=== PATIENT | male | born 1950 | race Caucasian/White ===

== ENCOUNTER 2016-11-27 08:36 | Observation (INO) | payer MEDICARE, OTHER ==
[2016-11-22 13:54] VITALS: Ht 162.6 cm; Wt 84.8 kg
[2016-11-22 13:59] VITALS: BP_SYST 122; RESP 12; TEMP 98.5
[~2016-11-27] VITALS: Ht 162.6 cm; Wt 84.8 kg
[2016-11-27] VITALS (59 sets, daily range): BP systolic 90–125; RESP 10–23; TEMP 97.8–98.4
[2016-11-27] MEDS ORDERED: CEFAZOLIN 2,000 MG in SODIUM CHLORIDE 0.9% 100 ML IV ONE (08:40)
[2016-11-27] MEDS ORDERED: LIDOCAINE 1% BUFFERED 1 ML SYR INTRADERM PRN (08:50)
[2016-11-27] MEDS ORDERED: MIDAZOLAM 2 MG/2 ML INJ IV ONE (08:50)
[2016-11-27] MEDS ORDERED: GLYCOPYRROLATE 0.2 MG/ML VIAL IV ONE (08:50)
[2016-11-27] MEDS ORDERED: LACT RINGERS 1,000 ML IV SCH (08:50)
[2016-11-27] MEDS ORDERED: SALINE FLUSH 10 ML FLUSH PRN ×2 (10:15→12:40)
[2016-11-27] MEDS ORDERED: MORPHINE 2 MG/ML SYR IV PRN ×3 (10:15→14:15)
[2016-11-27] MEDS ORDERED: ONDANSETRON 4 MG VIAL IV PRN ×3 (10:15→12:40)
[2016-11-27] MEDS ORDERED: OXYCODONE 5 MG TAB PO PRN ×2 (10:15→10:25)
[2016-11-27] MEDS ORDERED: MEPERIDINE 25 MG/ML IV PRN (10:25)
[2016-11-27] MEDS ORDERED: DILAUDID 1 MG/ML AMP IV PRN (10:25)
[2016-11-27] MEDS ORDERED: MORPHINE 4 MG/ML SYR IV PRN (10:25)
[2016-11-27] MEDS ORDERED: NITROGLYCERIN SL 0.4 MG TAB SL ONE ×4 (10:49→11:30)
[2016-11-27] MEDS ORDERED: ACETAMINOPHEN 325 MG TAB PO PRN (12:40)
[2016-11-27] MEDS ORDERED: ASPIRIN 81 MG CHEW TAB PO STA (12:40)
[2016-11-27] MEDS ORDERED: TEMAZEPAM 7.5 MG CAP PO PRN (12:40)
[2016-11-27] MEDS ORDERED: LORAZEPAM 0.5 MG TAB PO PRN (12:40)
[2016-11-27] MEDS ORDERED: TRAMADOL 50 MG TAB PO PRN ×2 (12:40→13:00)
[2016-11-27] MEDS ORDERED: NITROGLYCERIN SL 0.4 MG TAB SL PRN (12:40)
[2016-11-27] MEDS ORDERED: NITROGLYCERIN 2% OINT 1 INCH PKT TOPICAL SCH (12:40)
[2016-11-27] MEDS: MORPHINE 2 MG/ML SYR IV PRN ×4 (13:35→23:33)
[2016-11-27] MEDS ORDERED: LIDOCAINE 2% JELLY 30 ML TOPICAL ONE (14:11)
[2016-11-27] MEDS ORDERED: DILAUDID 1 MG/ML AMP IV ONE (14:11)
[2016-11-27] MEDS ORDERED: PROPOFOL 50ML PER ML IV ONE (14:11)
[2016-11-27] MEDS ORDERED: LIDOCAINE 2% SYR 5 ML IV ONE (14:11)
[2016-11-27] MEDS: Furosemide 40 MG/4 ML VIAL IV SCH ×2 (14:11→20:03)
[2016-11-27] MEDS ORDERED: KETAMINE INJ 50 MG/ML VIAL IV ONE (14:11)
[2016-11-27] MEDS ORDERED: BUPIVACA/EPI 0.25% PF 30ML NERVEBLOCK ONE (14:20)
[2016-11-27] MEDS ORDERED: ENOXAPARIN 40 MG/0.4 ML SYR SUBQ SCH (16:00)
[2016-11-27] MEDS: BACLOFEN 10 MG TAB PO SCH ×2 (16:39→20:03)
[2016-11-27] MEDS: GABAPENTIN 400 MG CAP PO SCH ×2 (16:39→20:03)
[2016-11-27] MEDS: CLOPIDOGREL 75 MG TAB PO SCH (16:39)
[2016-11-27] MEDS ORDERED: SALINE FLUSH 10 ML FLUSH SCH (20:00)
[2016-11-27] MEDS: SALINE FLUSH 10 ML FLUSH SCH (20:02)
[2016-11-27] MEDS ORDERED: Atorvastatin 40 MG TAB PO SCH (21:00)
[2016-11-28 03:30] VITALS: BP_SYST 106; RESP 18; TEMP 97.3
[2016-11-28] MEDS: MORPHINE 2 MG/ML SYR IV PRN ×2 (05:19→08:28)
[2016-11-28] MEDS ORDERED: SODIUM CHLORIDE 0.9% FLUSH BAG 500 ML IV SCH ×2 (06:00)
[2016-11-28 07:44] VITALS: BP_SYST 111; RESP 18; TEMP 98.3
[2016-11-28] MEDS ORDERED: ASPIRIN 81 MG CHEW TAB PO SCH (08:00)
[2016-11-28] MEDS: Furosemide 40 MG/4 ML VIAL IV SCH (08:21)
[2016-11-28] MEDS: SALINE FLUSH 10 ML FLUSH SCH (08:21)
[2016-11-28] MEDS: BACLOFEN 10 MG TAB PO SCH (08:21)
[2016-11-28] MEDS: CLOPIDOGREL 75 MG TAB PO SCH (08:22)
[2016-11-28] MEDS: GABAPENTIN 400 MG CAP PO SCH (08:22)
[2016-11-28] MEDS ORDERED: DOXYCYCLINE 100 MG TAB PO SCH (09:00)
[2016-11-28] MEDS ORDERED: Furosemide 40 MG TAB PO SCH (09:00)
[2016-11-28] MEDS ORDERED: PANTOPRAZOLE 40 MG TAB PO SCH (11:00)
[2016-11-28 11:20] VITALS: BP_SYST 122; RESP 18; TEMP 97.9
[2016-11-28 15:09] VITALS: BP_SYST 122; RESP 18; TEMP 97.9
[2016-11-28 15:14] VITALS: BP_SYST 127; RESP 18; TEMP 98
== END 2016-11-28 13:55 | disposition home or self-care (01) ==
LOC: ENRESERVTM → ENRESERVDT → SURG 08:36 → ENPENDDIS 12:40 → SDS 12:40 → PCU2 14:44
PROVIDERS: ADMIT Internal Medicine; ATTEND Internal Medicine
CPT/HCPCS: 11402; 71010 ×2; 71020 ×2; 71250 ×2; 80053 ×2; 80061 ×2; 82553 ×2; 83880 ×2; 84484 ×2; 85025 ×2; 88304 ×2; 93005 ×2; 94799; 97799; 99223; G0378; J1170; J2001; J2250; J2704; J7120